=== PATIENT | female | born 1990 | race American Indian/Alaskan Native ===

== ENCOUNTER 2025-08-10 11:12 | Emergency (ER) | payer OTHER ==
[~2025-08-10] VITALS: Ht 170.2 cm; Wt 78.5 kg
[2025-08-10] MEDS ORDERED: HYDROCODON-ACE1 EA10 PO (12:05)
[2025-08-10] MEDS ORDERED: HYDROCODONE/ACETA 5/325 TAB PO ONE (12:15)
[2025-08-10] MEDS ORDERED: IBUPROFEN 600 MG TAB PO ONE (12:15)
[2025-08-10 14:05] VITALS: BP 132/91
== END 2025-08-10 13:28 | disposition home or self-care (01) ==
LOC: ED 11:12 → EDBD 11:12 → ED 13:28
DX: S52.572A Other intraarticular fracture of lower end of left radius, initial encounter for closed fracture (principal); S52.612A Displaced fracture of left ulna styloid process, initial encounter for closed fracture; S62.512A Displaced fracture of proximal phalanx of left thumb, initial encounter for closed fracture; W18.30XA Fall on same level, unspecified, initial encounter
CPT/HCPCS: 29125; 73110; 99283; A9270